=== PATIENT | female | born 1970 | race Caucasian/White ===

== ENCOUNTER → 2017-05-02 | Outpatient (CLI) | payer BC | LOC: MC.RAD 15:00 | DX: Z12.31 Encounter for screening mammogram for malignant neoplasm of breast (principal) ==

== ENCOUNTER 2020-10-19 06:31 | Day surgery (SDC) | payer BC ==
[~2020-10-19] VITALS: Ht 180.3 cm; Wt 93.4 kg
[2020-10-19] MEDS ORDERED: PRINIVIL5 MG PO (07:02)
[2020-10-19] MEDS ORDERED: CLARITIN 1010 MG/TAB PO (07:03)
[2020-10-19] MEDS ORDERED: MELATONIN5 M1 SL (07:04)
[2020-10-19 07:10] VITALS: BP 108/81; PULSE 77; TEMP 98.4
[2020-10-19 08:05] VITALS: BP 105/69; PULSE 76; TEMP 97.9
[2020-10-19 08:20] VITALS: BP 113/70; PULSE 79
[2020-10-19 08:35] VITALS: BP 118/73; PULSE 78
--- NOTE | 2020-10-19 09:56 | NUR ---
0805 PATIENT AR[place] [facility] [place]IENT AMBUL[place] [facility] [place] WITH [facility]. VSS. REPORT AND CARE OFPATIENT RECEIVED FROM MICAH. PATIENT REQUESTED A DIET PEPSI AND MUFFINS. DR. HOLCOMB SPOKE WITH PATIENT REGARDING FINDINGS ON COLONOSCOPY. 0820 PATIENT TOLERATED PO WELL. VSS. 0835 IV D/C'D. CATH INTACT. TOLERATED WELL. D/C INSTRUCTIONS, VERBAL AND WRITTEN GIVEN TO PATIENT. PATIENT VERBALIZED UNDERSTANDING. QUESTIONS INVITED AND ANSWERED. 0846 D/C'D TO POV VIA W/C WITH PATIENT'S .
== END 2020-10-19 08:46 | disposition home or self-care (01) ==
LOC: SDCO 06:31
DX: Z12.11 Encounter for screening for malignant neoplasm of colon (principal); I10 Essential (primary) hypertension; Z20.822 Contact with and (suspected) exposure to COVID-19; J31.0 Chronic rhinitis; Z79.899 Other long term (current) drug therapy
CPT/HCPCS: J2704; J7120

== ENCOUNTER → 2022-09-05 | Outpatient (CLI) | payer BC ==
[~2022-09-05] MED LIST: CLARITIN 1010 MG/TAB PO; MELATONIN5 M1 SL; PRINIVIL5 MG PO
== END ==
LOC: MC.RAD 07:00
DX: Z12.31 Encounter for screening mammogram for malignant neoplasm of breast (principal)